=== PATIENT | female | born 1970 | race Two or more races ===

== ENCOUNTER 2016-04-22 09:24 | Emergency (ER) | payer MEDICAID ==
[~2016-04-22] VITALS: Ht 147.3 cm; Wt 70.8 kg
[2016-04-22 10:08] LABS: Basophils # (auto) 0 uL; Basophils % (auto) 0.3 % (0.0-2.0); Eosinophils # (auto) 0 uL; Eosinophils % (auto) 0.6 % (0.0-7.0); Hematocrit 40.6 % (36.0-46.0); Hemoglobin 12.9 g/dL (12.2-16.2); Lymphocytes % (auto) 28.1 % (10.0-50.0); Mean Corpuscular Hemoglobin 28.8 pg (28.0-32.0); Mean Corpuscular Hgb Conc. 31.9 g/dL (32.0-36.0); Mean Corpuscular Volume 90.5 fL (80.0-100.0); Mean Platelet Volume 9.1 fL (7.4-10.4); Monocytes # (auto) 0.4 uL; Neutrophils # (auto) 4.8 uL; Platelet Count (auto) 240 10^3/uL (140-450); Red Cell Distribution Width 12.1 % (11.6-16.0); White Blood Cell 7.2 10^3/uL (4.4-10.8)
[2016-04-22 10:33] LABS: Albumin 3.9 g/dL (3.4-5.0); BUN/Creatinine Ratio 22.6; Bilirubin, Total 0.4 mg/dL (0.2-1.0); Calcium 8.9 mg/dL (8.5-10.1); Magnesium 1.9 mg/dL (1.6-2.6); Total Protein 7.8 g/dL (6.4-8.2)
[2016-04-22 11:19] LABS: Urine Bilirubin Negative (Negative); Urine Color Yellow (Yellow); Urine Glucose Normal (Normal); Urine Ketone Negative (Negative); Urine Nitrite Negative (Negative); Urine RBC 11 /hpf (0 - 4); Urine Squamous Epithelial Cell FEW /hpf (<5); Urine Urobilinogen Normal (Negative)
[2016-04-22 11:26] LABS: Urine Blood 1+ /uL (Negative)
[2016-04-22] MEDS ORDERED: SODIUM CHLORIDE 0.9% 1,000 ML IVB ONE (11:58)
[2016-04-22 14:29] VITALS: BP 122/50
== END 2016-04-22 15:24 | disposition home or self-care (01) ==
LOC: ER 09:24
DX: K56.41 Fecal impaction (principal); K76.0 Fatty (change of) liver, not elsewhere classified; E11.9 Type 2 diabetes mellitus without complications; E78.5 Hyperlipidemia, unspecified
CPT/HCPCS: 36415; 71020; 74176; 80053; 81001; 81025; 82962; 83690; 83735; 85025; 99285; J7030

== ENCOUNTER 2016-05-09 22:35 | Emergency (ER) | payer MEDICAID ==
[~2016-05-09] VITALS: Ht 165.1 cm; Wt 72.6 kg
[2016-05-10] MEDS ORDERED: KETOROLAC TROMETH 60MG/2ML VIAL IM ONE (10:00)
[2016-05-10 10:53] LABS: Albumin 4.4 g/dL (3.4-5.0); Alkaline Phosphatase 125 U/L (45-117); Anion Gap 11 (5-15); Aspartate Aminotransferase 22 U/L (15-37); BUN/Creatinine Ratio 24.1; Bilirubin, Total 0.6 mg/dL (0.2-1.0); Blood Urea Nitrogen 14 mg/dL (7-18); Calcium 9.4 mg/dL (8.5-10.1); Carbon Dioxide 23 mmol/L (21-32); Chloride 105 mmol/L (98-107); GFR African American 145 mL/min; GFR Non-African American 119 mL/min; Glucose 138 mg/dL (74-106); Potassium 4.2 mmol/L (3.5-5.1); Sodium 139 mmol/L (136-145); Total Protein 8.9 g/dL (6.4-8.2)
[2016-05-10 11:00] VITALS: BP 139/99
[2016-05-10 11:42] LABS: Basophils # (auto) 0 uL; Basophils % (auto) 0.2 % (0.0-2.0); Eosinophils # (auto) 0 uL; Eosinophils % (auto) 0.5 % (0.0-7.0); Hematocrit 40.5 % (36.0-46.0); Hemoglobin 13.9 g/dL (12.2-16.2); Lymphocytes % (auto) 26.6 % (10.0-50.0); Mean Corpuscular Hemoglobin 30.6 pg (28.0-32.0); Mean Corpuscular Hgb Conc. 34.4 g/dL (32.0-36.0); Mean Platelet Volume 8.6 fL (7.4-10.4); Monocytes # (auto) 0.3 uL; Neutrophils # (auto) 5.2 uL; Neutrophils % (auto) 68.7 % (37.0-80.0); Platelet Count (auto) 258 10^3/uL (140-450); Red Cell Distribution Width 12.6 % (11.6-16.0); White Blood Cell 7.6 10^3/uL (4.4-10.8)
[2016-05-10 11:59] VITALS: BP 144/93
[2016-05-10 14:06] LABS: Urine Bilirubin Negative (Negative); Urine Color Yellow (Yellow); Urine Glucose Normal (Normal); Urine Ketone Negative (Negative); Urine Nitrite Negative (Negative); Urine RBC 3 /hpf (0 - 4); Urine Squamous Epithelial Cell FEW /hpf (<5); Urine Urobilinogen Normal (Negative); Urine pH 5.5 (5.0-8.0)
[2016-05-10 14:10] LABS: Urine Blood 2+ /uL (Negative)
== END 2016-05-10 13:44 | disposition home or self-care (01) ==
LOC: ER 22:35
DX: S22.31XA Fracture of one rib, right side, initial encounter for closed fracture (principal); S22.20XA Unspecified fracture of sternum, initial encounter for closed fracture; E11.9 Type 2 diabetes mellitus without complications; E78.5 Hyperlipidemia, unspecified; I10 Essential (primary) hypertension; Z79.4 Long term (current) use of insulin; W19.XXXA Unspecified fall, initial encounter; Y93.89 Activity, other specified; Y99.8 Other external cause status; Y92.89 Other specified places as the place of occurrence of the external cause
CPT/HCPCS: 36415; 71250; 80053; 81001; 84484; 85025; 93005; 96372; 99285; J1885

== ENCOUNTER 2016-05-11 04:05 | Emergency (ER) | payer MEDICAID ==
[~2016-05-11] VITALS: Ht 147.3 cm; Wt 72.6 kg
[2016-05-11 04:58] VITALS: BP 136/94
== END 2016-05-11 05:23 | disposition home or self-care (01) ==
LOC: ER 04:06
DX: S93.402A Sprain of unspecified ligament of left ankle, initial encounter (principal); I10 Essential (primary) hypertension; E11.9 Type 2 diabetes mellitus without complications; E78.5 Hyperlipidemia, unspecified; W19.XXXA Unspecified fall, initial encounter; Y93.89 Activity, other specified; Y99.8 Other external cause status; Y92.89 Other specified places as the place of occurrence of the external cause

== ENCOUNTER 2016-08-01 16:05 | Emergency (ER) | payer MEDICAID ==
[~2016-08-01] VITALS: Ht 147.3 cm; Wt 74.8 kg
[2016-08-01 16:28] VITALS: BP 147/111
== END 2016-08-01 19:45 | disposition home or self-care (01) ==
LOC: ER 16:31
DX: M25.561 Pain in right knee (principal); M25.571 Pain in right ankle and joints of right foot; E11.9 Type 2 diabetes mellitus without complications; I10 Essential (primary) hypertension; E78.5 Hyperlipidemia, unspecified; W01.0XXA Fall on same level from slipping, tripping and stumbling without subsequent striking against object, initial encounter; Y93.89 Activity, other specified; Y92.090 Kitchen in other non-institutional residence as the place of occurrence of the external cause; Y99.8 Other external cause status

== ENCOUNTER 2017-04-14 20:24 | Emergency (ER) | payer MEDICAID ==
[~2017-04-14] VITALS: Ht 152.4 cm; Wt 72.6 kg
[2017-04-14 20:51] VITALS: BP 113/87
== END 2017-04-14 21:53 | disposition home or self-care (01) ==
LOC: ER 20:28
DX: F31.9 Bipolar disorder, unspecified (principal); I10 Essential (primary) hypertension; E11.9 Type 2 diabetes mellitus without complications; F41.9 Anxiety disorder, unspecified; E78.5 Hyperlipidemia, unspecified; Z76.0 Encounter for issue of repeat prescription

== ENCOUNTER 2018-08-11 12:43 | Emergency (ER) | payer MEDICAID ==
[~2018-08-11] VITALS: Ht 162.6 cm; Wt 90.7 kg
[2018-08-11 13:51] LABS: Albumin 3.9 g/dL (3.4-5.0); Anion Gap 9 (5-15); Blood Urea Nitrogen 7 mg/dL (7-18); Calcium 9.1 mg/dL (8.5-10.1); Carbon Dioxide 24 mmol/L (21-32); Chloride 107 mmol/L (98-107); Glucose 105 mg/dL (74-106); Potassium 3.8 mmol/L (3.5-5.1); Sodium 140 mmol/L (136-145)
[2018-08-11 13:57] LABS: Alanine Aminotransferase 27 U/L (13-56); Alkaline Phosphatase 82 U/L (45-117); Aspartate Aminotransferase 15 U/L (15-37); BUN/Creatinine Ratio 11.3; Bilirubin, Total 0.4 mg/dL (0.2-1.0); GFR African American 133 mL/min; GFR Non-African American 110 mL/min; Total Protein 7.7 g/dL (6.4-8.2)
[2018-08-11 14:23] VITALS: BP 133/87
[2018-08-11 14:29] LABS: Basophils # (auto) 0.3 uL; Basophils % (auto) 2.9 % (0.0-2.0); Eosinophils # (auto) 0.3 uL; Hematocrit 41.7 % (36.0-46.0); Hemoglobin 14.1 g/dL (12.2-16.2); Lymphocytes # (auto) 1.7 uL; Mean Corpuscular Hemoglobin 30.9 pg (28.0-32.0); Mean Corpuscular Volume 91.2 fL (80.0-100.0); Monocytes # (auto) 0.3 uL; Monocytes % (auto) 2.6 % (0.0-12.0); Neutrophils # (auto) 7.8 uL; Neutrophils % (auto) 75.5 % (37.0-80.0); Platelet Count (auto) 225 10^3/uL (140-450); Red Blood Cells 4.57 10^6/uL (4.0-5.20); Red Cell Distribution Width 13.3 % (11.8-14.3); White Blood Cell 10.3 10^3/uL (4.4-10.8)
[2018-08-11] MEDS ORDERED: KETOROLAC TROMETH 60MG/2ML VIAL IM ONE (15:15)
== END 2018-08-11 15:31 | disposition home or self-care (01) ==
LOC: EDBD 12:43 → ER 12:45
DX: N39.0 Urinary tract infection, site not specified (principal); N28.1 Cyst of kidney, acquired; E11.9 Type 2 diabetes mellitus without complications; E78.5 Hyperlipidemia, unspecified; I10 Essential (primary) hypertension; Z87.442 Personal history of urinary calculi
CPT/HCPCS: 36415; 74176; 80053; 81002; 84484; 85025; 96372; 99284; J1885

== ENCOUNTER 2021-02-14 16:20 | Emergency (ER) | payer MEDICAID ==
[~2021-02-14] VITALS: Ht 147.3 cm; Wt 63.5 kg
[2021-02-14 16:28] VITALS: BP 117/75
[2021-02-14 17:05] LABS: Urine Bacteria FEW /hpf (None Seen); Urine Blood Negative /uL (Negative); Urine Specific Gravity 1.002 (1.001-1.035); Urine WBC 1 /hpf (0 - 5)
[2021-02-14] MEDS ORDERED: HYDROcodone-ACET 5/325MG TAB PO ONE (17:15)
[2021-02-14 19:22] LABS: Albumin 3.9 g/dL (3.4-5.0); BUN/Creatinine Ratio 12.7; Basophils # (auto) 0 10 ^3/uL (0-0.2); Basophils % (auto) 0.3 % (0.0-2.0); Calcium 8.8 mg/dL (8.5-10.1); Eosinophils # (auto) 0.1 10 ^3/uL (0-0.8); Eosinophils % (auto) 0.8 % (0.0-7.0); Hematocrit 41.7 % (36.0-46.0); Hemoglobin 14.1 g/dL (12.2-16.2); Lymphocytes # (auto) 2.5 10 ^3/uL (0.4-5.4); Lymphocytes % (auto) 38.1 % (10.0-50.0); Mean Corpuscular Hemoglobin 31.2 pg (28.0-32.0); Mean Corpuscular Hgb Conc. 33.7 g/dL (32.0-36.0); Mean Corpuscular Volume 92.4 fL (80.0-100.0); Monocytes # (auto) 0.3 10 ^3/uL (0-1.3); Monocytes % (auto) 4.1 % (0.0-12.0); Neutrophils # (auto) 3.8 10 ^3/uL (1.6-8.6); Neutrophils % (auto) 56.7 % (37.0-80.0); Potassium 3.9 mmol/L (3.5-5.1); Red Blood Cells 4.51 10^6/uL (4.0-5.20); Red Cell Distribution Width 12.3 % (11.8-14.3); White Blood Cell 6.6 10^3/uL (4.4-10.8)
[2021-02-14 19:25] LABS: Bilirubin, Total 0.2 mg/dL (0.2-1.0); Total Protein 7.1 g/dL (6.4-8.2)
== END 2021-02-14 20:31 | disposition home or self-care (01) ==
LOC: ER 16:20
DX: M79.662 Pain in left lower leg (principal); Z76.5 Malingerer [conscious simulation]; I10 Essential (primary) hypertension; E11.9 Type 2 diabetes mellitus without complications; E78.5 Hyperlipidemia, unspecified; F17.210 Nicotine dependence, cigarettes, uncomplicated
CPT/HCPCS: 36415; 80053; 81001; 85025; 93971

== ENCOUNTER 2021-07-23 20:47 | Emergency (ER) | payer MEDICAID ==
[~2021-07-23] VITALS: Ht 149.9 cm; Wt 56.2 kg
[2021-07-24] MEDS ORDERED: NAP500T PO (02:38)
[2021-07-24 03:15] VITALS: BP 130/78
== END 2021-07-24 03:27 | disposition home or self-care (01) ==
LOC: ER 20:47
DX: M79.672 Pain in left foot (principal); F17.210 Nicotine dependence, cigarettes, uncomplicated; E11.9 Type 2 diabetes mellitus without complications; I10 Essential (primary) hypertension; E78.5 Hyperlipidemia, unspecified
CPT/HCPCS: 73630

== ENCOUNTER 2021-10-10 16:08 | Emergency (ER) | payer MEDICAID ==
[~2021-10-10 16:08] MED LIST: NAP500T PO
== END 2021-10-10 16:48 | disposition left against medical advice (07) ==
LOC: ER 16:08
DX: R10.9 Unspecified abdominal pain (principal); R11.2 Nausea with vomiting, unspecified; Z53.21 Procedure and treatment not carried out due to patient leaving prior to being seen by health care provider

== ENCOUNTER 2021-10-12 20:13 | Emergency (ER) | payer MEDICAID ==
[~2021-10-12] VITALS: Ht 147.3 cm; Wt 64.0 kg
[2021-10-12 22:25] VITALS: BP 131/98
== END 2021-10-12 22:28 | disposition home or self-care (01) ==
LOC: ER 20:13
DX: B34.9 Viral infection, unspecified (principal); I10 Essential (primary) hypertension; E11.9 Type 2 diabetes mellitus without complications; E78.5 Hyperlipidemia, unspecified; F17.210 Nicotine dependence, cigarettes, uncomplicated; Z90.49 Acquired absence of other specified parts of digestive tract; Z79.899 Other long term (current) drug therapy; Z88.8 Allergy status to other drugs, medicaments and biological substances; Z20.822 Contact with and (suspected) exposure to COVID-19
CPT/HCPCS: 36415

== ENCOUNTER 2023-03-10 01:41 | Emergency (ER) | payer MEDICAID ==
[~2023-03-10] VITALS: Ht 147.3 cm; Wt 58.7 kg
[2023-03-10 05:31] LABS: COVID19 ANTIGEN SOFIA FIA NEGATIVE (NEGATIVE)
[2023-03-10 05:32] LABS: Rapid Influenza A Negative (Negative); Rapid Influenza B Negative (Negative)
[2023-03-10 05:55] VITALS: BP 132/89; PULSE 89; RESP 19; TEMP 98; O2SAT 98
== END 2023-03-10 06:40 | disposition home or self-care (01) ==
LOC: ER 01:41
DX: B34.9 Viral infection, unspecified (principal); I10 Essential (primary) hypertension; E11.9 Type 2 diabetes mellitus without complications; E78.5 Hyperlipidemia, unspecified; F17.210 Nicotine dependence, cigarettes, uncomplicated; Z90.49 Acquired absence of other specified parts of digestive tract; Z20.822 Contact with and (suspected) exposure to COVID-19
CPT/HCPCS: 36415; 87426; 87804

== ENCOUNTER 2024-03-24 18:00 | Emergency (ER) | payer MEDICAID ==
[~2024-03-24] VITALS: Ht 142.2 cm; Wt 54.5 kg
[2024-03-24 18:53] VITALS: BP 147/104; PULSE 120; RESP 18; TEMP 99.5; O2SAT 97
[2024-03-24] MEDS: clonazePAM 0.5 MG TAB PO ONE (19:06)
--- NOTE | 2024-03-24 19:06 | ED.PDOC ---
Back pain HPI HPI Comments This is a 53-year-old female presents to the ED chief complaint left lower leg pain. Currently in a boarding home, states she rents a room out her caregivers name his Antonia. Patient states was climbing up the window to let someone in the house fell out the 1st floor window landing on her left leg. Patient notes left lower leg pain 10/10 on pain scale described as sharp shooting type pain. Has not tried any [id number] relief measures. Patient presented his historical crying. Denies neck pain, head injury, LOC, back pain, numbness or weakness. Chief Complaint: Lower Extremity Time Seen by MD: 18:03 Primary Care Provider: ZACK Reviewed Notes: Nurses Notes, Medications, Allergies Allergies: Coded Allergies: Haloperidol (Verified Allergy, Unknown, 10/12/21) Home Meds Active Scripts Naproxen (NAPROSYN TABLET) 500 Mg Tb, 1 TAB PO BID PRN, #30 TAB 1 Refill Prov:HOWARD HILLIARD DO 07/24/21 Information Source: Patient Past Medical History PAST MEDICAL HISTORY: Anxiety, Depression, DM, High Lipids, HTN, Kidney Stones Surgical History: BTL, Cholecystectomy, Tubal Ligation GREEK PROFESSOR History: No Pertinent GREEK PROFESSOR History Family History Family History: Reviewed,noncontributory to illness Social History Smoker: Cigarettes Alcohol: Occasionally Drugs: Marijuana, Methamphetamine Lives In: Home Constitutional: denies: chills, diaphoresis, fatigue, fever, malaise, sweats, weakness, others EENTM: denies: blurred vision, double vision, ear bleeding, ear discharge, ear drainage, ear pain, ear ringing, eye pain, eye redness, hearing loss, mouth pain, mouth swelling, nasal discharge, nose bleeding, nose congestion, nose pain, photophobia, tearing, throat pain, throat swelling, voice changes, others Respiratory: denies: cough, hemoptysis, orthopnea, SOB at rest, shortness of breath, SOB with excertion, stridor, wheezing, others Cardiovascular: denies: chest pain, dizzy spells, diaphoresis, Dyspnea on exertion, edema, irregular heart beat, left arm pain, lightheadedness, palpitations, PND, syncope, others Gastrointestinal: denies: abdomen distended, abdominal pain, blood streaked bowels, constipated, diarrhea, dysphagia, difficulty swallowing, hematemesis, melena, nausea, poor appetite, poor fluid intake, rectal bleeding, rectal pain, vomiting, others Genitourinary: denies: abnormal vagina bleeding, burning, dyspareunia, dysuria, flank pain, frequency, hematuria, incontinence, pain, , vagina discharge, urgency, others Neurological: denies: dizziness, fainting, headache, left sided numbness, left sided weakness, numbness, paresthesia, pre-existing deficit, right sided n umbness, right sided weakness, seizure, speech problems, tingling, tremors, weakness, others Musculoskeletal: reports: others (Leg pain); denies: back pain, gout, joint pain, joint swelling, muscle pain, muscle stiffness, neck pain Integumetry: denies: bruises, change in color, change in hair/nails, dryness, laceration, lesions, lumps, rash, wounds, others Allergic/Immunocompromised: denies: Difficulty Healing, Frequent Infections, Hives, Itching, others Hematologic/Lymphatic: denies: anemia, blood clots, easy bleeding, easy bruising, swollen glands, others Endocrine: denies: excessive hunger, excessive sweating, excessive thirst, excessive urination, flushing, intolerance to cold, intolerance to heat, unexplained weight gain, unexplained weight loss, others Psychiatric: denies: anxiety, bipolar disorder, depression, hopeless, panic disorder, schizophrenia, sleepless, suicidal, others Physical Exam General Appearance: No Apparent Distress, Normal HEENT: Normal ENT Inspection, Pharynx Normal, TMs Normal Neck: Full Range of Motion, Non-Tender, Normal, Normal Inspection Respiratory: Chest Non-Tender, Lungs Clear, No Accessory Muscle Use, No Respiratory Distress, Normal Breath Sounds Cardiovascular: No Edema, No JVD, No Murmur, No Gallop, Normal Peripheral Pulses, Regular Rate/Rhythm Breast Exam: Deferred Gastrointestinal: No Organomegaly, Non Tender, No Pulsatile Mass, Normal Bowel Sounds, Soft Genitalia: Deferred Pelvic: Deferred Rectal: Deferred Extremities: No calf tenderness, Normal capillary refill, Normal inspection, Normal range of motion, Non-tender, No pedal edema Musculoskeletal : Location: Left Extremity Location: Leg (Left mid peterson with moderate tenderness we will do with trace edema and ecchymosis no open lesions abrasions or lacerations strength sensory motion intact positive pedal pulse) Apperance: Normal Neurologic: Alert, sales marketing II-XII nml as Tested, No Motor Deficits, Normal Affect, Normal Mood, No Sensory Deficits Cerebellar Function: Normal Reflexes: Normal Skin: Dry, Normal Color, Warm Lymphatic: No Adenopathy Was a procedure done? Was a procedure done?: No Back Pain Differential Dx Differential Diagnosis: Fracture, Musculoskeletal Pain X-Ray, Labs, Meds, VS Vital Signs Date Time Temp Pulse Resp B/P (MAP) Pulse Ox O2 Delivery O2 Flow Rate FiO2 03/24/24 18:53 99.5 120 18 147/104 (118) 97 99.5 03/24/24 18:53 120 18 97 Room Air 03/24/24 18:35 99.5 120 18 147/104 (118) 97 Current Medications Medications (Trade) Dose Ordered Sig/Alisa Route Start Time Stop Time Status Last Admin Clonazepam (KlonoPIN TABLET) 0.5 mg ONCE ONCE PO 03/24/24 19:00 03/24/24 19:01 DC 03/24/24 19:06 X-Ray, Labs, Meds, VS Comment Patient given Klonopin noted improvement patient not surgically crying. X-ray left tib-fib shows no acute findings without osseous lesions. Likely contusion. Motrin 600 script to patient's pharmacy on file. Advised on rice. Advised to follow up with her PCP in 2-3 days as necessary consider further imaging if symptoms persist. ER return precautions given patient indicated understanding agrees with discharge plan of care. Time of 1ST Reevaluation: 19:22 Reevaluation 1ST: Improved Patient Education/Counseling: Diagnosis, Treatment, Prognosis, Need For Follow Up Family Education/Counseling: No Family Present Departure 1 Departure Time of Disposition: 19:22 Impression: Primary Impression: Contusion of lower leg, left Qualified Codes: S80.12XA - Contusion of left lower leg, initial encounter Disposition: HOME / SELF CARE / HOMELESS Condition: Stable e-Prescriptions Ibuprofen Micronized (MOTRIN TABLET) 600 Mg Tb 600 MG PO TID PRN for 5 Days, #15 TAB *Black box warning-NSAIDS can increase risk of DC & hypertension, GI irritation, ulceration, bleed, perferation. Do not use post cardiac surgery. Use short duration/lowest effective dose. Prov: MADI MORRISON 03/24/24 Discharged With: Self Critical Care Note Critical Care Time?: No Stability Stability form required: No TAMIKO,MADI NATIONAL FACILITIES MANAGER Mar 24, 2024 19:06
--- NOTE | 2024-03-24 19:21 | DVH ---
EXAM: XY L TIB FIB XRAY CLINICAL HISTORY: pain/injury COMPARISON: None TECHNIQUE: XY L TIB FIB XRAY Findings/Impression: 2 views of the left tibia and fibula. There is no evidence of an acute fracture, dislocation, blastic, or lytic lesions. No radiopaque foreign bodies. No superficial soft tissue abnormalities.
[2024-03-24] MEDS ORDERED: IBU600T PO (19:23)
== END 2024-03-24 20:05 | disposition home or self-care (01) ==
LOC: ER 18:00
DX: S80.12XA Contusion of left lower leg, initial encounter (principal); I10 Essential (primary) hypertension; E11.9 Type 2 diabetes mellitus without complications; F41.9 Anxiety disorder, unspecified; F32.9 Major depressive disorder, single episode, unspecified; E78.5 Hyperlipidemia, unspecified; F17.210 Nicotine dependence, cigarettes, uncomplicated; F15.90 Other stimulant use, unspecified, uncomplicated; Z90.49 Acquired absence of other specified parts of digestive tract; Z98.890 Other specified postprocedural states; Z79.899 Other long term (current) drug therapy; W17.89XA Other fall from one level to another, initial encounter; Y93.39 Activity, other involving climbing, rappelling and jumping off; Y92.048 Other place in boarding-house as the place of occurrence of the external cause; Y99.8 Other external cause status
CPT/HCPCS: 73590

== ENCOUNTER → 2024-06-26 | Outpatient (CLI) | payer MEDICAID ==
[2024-06-26 12:16] LABS: Basophils # (auto) 0 10 ^3/uL (0-0.2); Basophils % (auto) 0.5 % (0.0-2.0); Eosinophils # (auto) 0 10 ^3/uL (0-0.8); Eosinophils % (auto) 0.6 % (0.0-7.0); Hematocrit 41.6 % (36.0-46.0); Hemoglobin 14.3 g/dL (12.2-16.2); Lymphocytes # (auto) 2.6 10 ^3/uL (0.4-5.4); Lymphocytes % (auto) 48.6 % (10.0-50.0); Mean Corpuscular Hemoglobin 30.7 pg (28.0-32.0); Mean Corpuscular Hgb Conc. 34.4 g/dL (32.0-36.0); Mean Corpuscular Volume 89.4 fL (80.0-100.0); Monocytes # (auto) 0.3 10 ^3/uL (0-1.3); Monocytes % (auto) 5.2 % (0.0-12.0); Neutrophils # (auto) 2.4 10 ^3/uL (1.6-8.6); Neutrophils % (auto) 45.1 % (37.0-80.0); Platelet Count (auto) 187 10^3/uL (140-450); Red Blood Cells 4.66 10^6/uL (4.0-5.20); White Blood Cell 5.4 10^3/uL (4.4-10.8)
[2024-06-26 12:34] LABS: Alanine Aminotransferase 16 U/L (7-40); Anion Gap 7 (5-15); Aspartate Aminotransferase 17 U/L (13-40); BUN/Creatinine Ratio 21.4 (10.0-20.0); Blood Urea Nitrogen 18 mg/dL (9-23); Calcium 10.3 mg/dL (8.7-10.4); Carbon Dioxide 27 mmol/L (20-31); Chloride 105 mmol/L (98-107); Potassium 4.6 mmol/L (3.5-5.1); Sodium 139 mmol/L (136-145); Total Protein 7.7 g/dL (5.7-8.2); Triglycerides 119 mg/dL (< 150)
[2024-06-26 12:35] LABS: Bilirubin, Total 0.6 mg/dL (0.2-1.0); Cholesterol 170 mg/dL (< 200); HDL Cholesterol 50 mg/dL (40-59)
[2024-06-26 12:39] LABS: Alkaline Phosphatase 124 U/L (46-116); Glucose 142 mg/dL (74-106); LDL Cholesterol 102 mg/dL (< 100)
[2024-06-26 12:57] LABS: Creatinine, Urine 147.67 mg/dL (30.0-125.0)
[2024-06-26 13:00] LABS: Microalb/Creat Ratio, Urine < 3.0
== END | disposition home or self-care (01) ==
LOC: LAB 11:34
PROVIDERS: ATTEND Nurse Practitioner Family
DX: E11.9 Type 2 diabetes mellitus without complications (principal); E66.9 Obesity, unspecified; Z00.01 Encounter for general adult medical examination with abnormal findings
CPT/HCPCS: 36415; 80053; 80061; 82043; 82306; 82570; 83036; 84443; 85025

== ENCOUNTER 2024-08-07 01:39 | Inpatient (IN) | payer MEDICAID ==
[~2024-08-07] VITALS: Ht 142.2 cm; Wt 61.3 kg
[2024-08-07] VITALS (7 sets, daily range): BP systolic 111–160; BP diastolic 88–92; PULSE 85–102; RESP 16–18; TEMP 96.8–98.7; O2SAT 96–100
--- NOTE | 2024-08-07 02:21 | ED.PDOC ---
History of Present Illness HPI Comments 54 y/o F, with a history of DM, HLD, HTN, cholecystectomy, BTL, and polysubstance abuse, is BIBA for 3 hours of nonradiating, RLQ abdominal pain. Patient reports pain being a 7/10 in severity and admits to heavy alcohol use, earlier, last night. Denies any further relevant history, such as recent travel, abdominal surgeries, injuries, sick contact, or spoiled food or additional illicit substance use. Patient has no reported nausea, vomiting, diarrhea, constipation, urinary symptoms, fever, chills, or further associated symptoms. On scene, she was found with a blood glucose of 249. Chief Complaint: Abdominal Pain Time Seen by MD: 02:00 Primary Care Provider: ZACK Reviewed Notes: Nurses Notes, Skein Yard Drier Notes, Medications, Allergies Allergies: Coded Allergies: Haloperidol (Verified Allergy, Unknown, 10/12/21) Home Meds Active Scripts Naproxen (NAPROSYN TABLET) 500 Mg Tb, 1 TAB PO BID PRN, #30 TAB 1 Refill Prov:HOWARD HILLIARD 07/24/21 Information Source: Emergency Med Personnel Mode of Arrival: EMS Severity: Moderate Timing: Hours Duration: Since onset Prehospital treatment: 12 Lead EKG, Accucheck, Chief Mate Past Medical History PAST MEDICAL HISTORY: Anxiety, Depression, DM, High Lipids, HTN, Kidney Stones, Schizophrenia Past Medical History (Other): Bipolar disorder Surgical History: BTL, Cholecystectomy EXPLOSIVE ORDNANCE MANAGER History: No Pertinent EXPLOSIVE ORDNANCE MANAGER History Family History Family History: Reviewed,noncontributory to illness Social History Smoker: Cigarettes Alcohol: Occasionally Drugs: Marijuana, Methamphetamine Lives In: Home All Other Systems: Reviewed and Negative (Comprehensive systems review obtained and negative except for what is stated in the HPI.) Physical Exam General Appearance: No Apparent Distress, Normal HEENT: Normal ENT Inspection, Pharynx Normal, TMs Normal Neck: Full Range of Motion, Non-Tender, Normal, Normal Inspection Respiratory: Chest Non-Tender, Lungs Clear, No Accessory Muscle Use, No Respiratory Distress, Normal Breath Sounds Cardiovascular: No Edema, No JVD, No Murmur, No Gallop, Normal Peripheral Pulses, Regular Rate/Rhythm Breast Exam: Deferred Gastrointestinal: No Organomegaly, No Pulsatile Mass, Normal Bowel Sounds, RLQ (tenderness ), Soft, Tenderness (RLQ) Genitalia: Deferred Pelvic: Deferred Rectal: Deferred Extremities: No calf tenderness, Normal capillary refill, Normal inspection, Normal range of motion, Non-tender, No pedal edema Musculoskeletal : Apperance: Normal Neurologic: Alert, dental office receptionist II-XII nml as Tested, No Motor Deficits, Normal Affect, Normal Mood, No Sensory Deficits Cerebellar Function: Normal Reflexes: Normal Skin: Dry, Normal Color, Warm Lymphatic: No Adenopathy Was a procedure done? Was a procedure done?: No Differential Dx Considerations may include: appendicitis, diverticulitis, PID, UTI, kidney stones, among others X-Ray, Labs, Meds, VS Vital Signs Date Time Temp Pulse Resp B/P (MAP) Pulse Ox O2 Delivery O2 Flow Rate FiO2 08/07/24 01:39 98.4 118 18 142/82 (102) 97 98.4 Lab Test 08/07/24 02:20 Range/Units White Blood Count 5.8 4.4-10.8 10^3/uL Red Blood Count 4.77 4.0-5.20 10^6/uL Hemoglobin 14.3 12.2-16.2 g/dL Hematocrit 42.3 36.0-46.0 % Mean Corpuscular Volume 88.6 80.0-100.0 fL Mean Corpuscular Hemoglobin 30.0 28.0-32.0 pg Mean Corpuscular Hemoglobin Concent 33.9 32.0-36.0 g/dL Red Cell Distribution Width 12.6 11.8-14.3 % Platelet Count 179 140-450 10^3/uL Mean Platelet Volume 8.7 6.9-10.8 fL Neutrophils (%) (Auto) 52.0 37.0-80.0 % Lymphocytes (%) (Auto) 43.4 10.0-50.0 % Monocytes (%) (Auto) 3.8 0.0-12.0 % Eosinophils (%) (Auto) 0.4 0.0-7.0 % Basophils (%) (Auto) 0.4 0.0-2.0 % Neutrophils # (Auto) 3.0 1.6-8.6 10 ^3/uL Lymphocytes # (Auto) 2.5 0.4-5.4 10 ^3/uL Monocytes # (Auto) 0.2 0-1.3 10 ^3/uL Eosinophils # (Auto) 0 0-0.8 10 ^3/uL Basophils # (Auto) 0 0-0.2 10 ^3/uL Nucleated Red Blood Cells 0.1 % Sodium Level 142 136-145 mmol/L Potassium Level 3.2 L 3.5-5.1 mmol/L Chloride Level 109 H 98-107 mmol/L Carbon Dioxide Level 17 L 20-31 mmol/L Anion Gap 16 H 5-15 Blood Urea Nitrogen 13 9-23 mg/dL Creatinine 0.71 0.550-1.02 mg/dL Glomerular Filtration Rate Calc 102 >90 mL/min BUN/Creatinine Ratio 18.3 10.0-20.0 Serum Glucose 243 H 74-106 mg/dL Calcium Level 9.5 8.7-10.4 mg/dL Plasma/Serum Blood Alcohol 65.8 H <10 mg/dL Current Medications Medications (Trade) Dose Ordered Sig/Alisa Route Start Time Stop Time Status Last Admin Sodium Chloride 1,000 ml @ 1,000 mls/hr Q1H ONCE IV 08/07/24 02:15 08/07/24 03:14 DC 08/07/24 03:34 Ondansetron HCl (Zofran) 4 mg ONCE ONCE IV 08/07/24 02:15 08/07/24 02:16 DC 08/07/24 03:33 Famotidine (Pepcid Injection) 20 mg ONCE ONCE IV 08/07/24 02:15 08/07/24 02:16 DC 08/07/24 03:34 Time of 1ST Reevaluation: 02:30 Reevaluation 1ST: Unchanged Patient Education/Counseling: Diagnosis, Treatment Family Education/Counseling: No Family Present Additional Information Previous visits reviewed: March 24, 2024 encounter for contusion of lower leg, left The following tests were ordered, and results were reviewed by me: CT abdomen/pelvis w/IV contrast; UA, CBC, BMP, blood alcohol Additional Information was gathered from interviewing the following independent historians: EMS I reviewed and agreed with the following test results read by other providers: CT abdomen/pelvis w/IV contrast I discussed treatment and results with medical personnel and: patient Departure 1 Departure Time of Disposition: 04:10 (Patient presented with abdominal pain that was concerning for possible appendicits, gastritis, cholecystitis, colitis, gastroenteritis, sbo, or orther possible surgical emergency. Data: 1. I ordered and reviewed the result of at least 3 labs including a CBC, BMP, and Urinalysis. 2. I independently interpreted the following tests: CT Abdoment and Pelvis is concerning for gastroenteritis .Risk:This patient has a high risk of morbidity due to further diagnostic testing or treatment and may suffer from an acute abdominal process disorder. Workup reveals gastroenteritis but patient is having intractable bowel movement and patient should be admitted for further workup. and possible expert consultation. ) Impression: Primary Impression: Intractable abdominal pain Additional Impressions: Gastroenteritis Alcohol intoxication Qualified Codes: F10.920 - Alcohol use, unspecified with intoxication, uncomplicated Disposition: ADMITTED INPATIENT Admit to: Med Surg Condition: Serious Critical Care Note Critical Care Time?: Yes Critical care comment: Intractable abdominal pain Authorized and Performed by: Mitchell Bergeron MD Total critical care time: Approximately 39 minutes Due to a high probability of clinically significant, life threatening deterioration, the patient required my highest level of preparedness to intervene emergently and I personally spent this critical care time directly and personally managing the patient. This critical care time included obtaining a history; examining the patient; pulse oximetry; ordering and review of studies; arranging urgent treatment with development of a management plan; evaluation of patient's response to treatment; frequent reassessment; and, discussions with other providers. This critical care time was performed to assess and manage the high probability of imminent, life-threatening deterioration that could result in multi-organ failure. It was exclusive of separately billable procedures and treating other patients and teaching time. Please see my other sections and the rest of the note for further information on patient assessment and treatment. Stability Stability form required: No Heart Score Heart Score: Heart Score Response (Comments) Value History N/A 0 EKG N/A 0 Age N/A 0 Risk Factors N/A 0 Troponin N/A 0 Total 0 I personally scribed for MITCHELL BERGERON MD ([email or web address]) on 08/07/24 at 02:21. Electronically submitted by Heri Nixon ([email or web address]). MITCHELL BERGERON MD Aug 07, 2024 02:21
[2024-08-07 02:27] LABS: Basophils # (auto) 0 10 ^3/uL (0-0.2); Basophils % (auto) 0.4 % (0.0-2.0); Eosinophils # (auto) 0 10 ^3/uL (0-0.8); Eosinophils % (auto) 0.4 % (0.0-7.0); Hematocrit 42.3 % (36.0-46.0); Hemoglobin 14.3 g/dL (12.2-16.2); Lymphocytes # (auto) 2.5 10 ^3/uL (0.4-5.4); Lymphocytes % (auto) 43.4 % (10.0-50.0); Mean Corpuscular Hgb Conc. 33.9 g/dL (32.0-36.0); Mean Corpuscular Volume 88.6 fL (80.0-100.0); Monocytes # (auto) 0.2 10 ^3/uL (0-1.3); Monocytes % (auto) 3.8 % (0.0-12.0); Nucleated Red Blood Cells % 0.1 %; Platelet Count (auto) 179 10^3/uL (140-450); Red Blood Cells 4.77 10^6/uL (4.0-5.20); Red Cell Distribution Width 12.6 % (11.8-14.3); White Blood Cell 5.8 10^3/uL (4.4-10.8)
[2024-08-07 02:37] LABS: Sodium 142 mmol/L (136-145)
[2024-08-07 02:38] LABS: Anion Gap 16 (5-15); Calcium 9.5 mg/dL (8.7-10.4)
[2024-08-07 02:43] LABS: BUN/Creatinine Ratio 18.3 (10.0-20.0); Blood Urea Nitrogen 13 mg/dL (9-23)
[2024-08-07 02:44] LABS: Carbon Dioxide 17 mmol/L (20-31); Chloride 109 mmol/L (98-107); Glucose 243 mg/dL (74-106); Potassium 3.2 mmol/L (3.5-5.1)
[2024-08-07 03:06] LABS: Blood Alcohol 65.8 mg/dL (<10)
[2024-08-07] MEDS: ONDANSETRON HCL 4 MG/2 ML VIAL IV ONE (03:33)
[2024-08-07] MEDS: IOHEXOL 300 MG/ML 100ML BOTTLE IJ ONE (03:33)
[2024-08-07] MEDS: SODIUM CHLORIDE 0.9% 1,000 ML IV ONE (03:34)
[2024-08-07] MEDS: FAMOTIDINE (10MG/ML) 2ML VL IV ONE (03:34)
--- NOTE | 2024-08-07 04:08 | DVH ---
Exam: CT CT AB PEL WITH IV CON ONLY History: rlq pain Comparison Study: Report from a prior CT of the abdomen pelvis performed on 12/15/2023 Contrast: Type of contrast: Omnipaque 300 Contrast injected: 100 cc Contrast wasted: 0 TECHNIQUE: CT of the abdomen pelvis was performed with intravenous contrast from the lung bases to th e proximal femurs. Coronal and sagittal reformatted images are submitted. Radiation Dose Information: CT Dose: CTDI volume is 10.91 mGy. Dose-length product is 561.04 mGy*cm FINDINGS: Lung Bases: No acute or significant lung base finding. Normal heart size. No pleural or pericardial effusion. Liver: The liver is normal in size. No focal lesions. Normal hepatic vascular enhancement. Gallbladder and Biliary Tree: The gallbladder is surgically absent. No intrahepatic biliary ductal di latation. The common bile duct is dilated measuring 1.1 cm in diameter. Spleen: Unremarkable Pancreas: The pancreas is normal in appearance without focal lesions or abnormal enhancement. Adrenal Glands: Unremarkable. Kidneys: Kidneys demonstrate normal symmetric enhancement. There is an 8 mm parenchymal calcificatio n versus intrarenal calculus. No hydronephrosis. Bilateral subcentimeter simple renal cysts. Bladder: Unremarkable Bowel: The stomach is fluid distended. No small bowel dilatation or obstruction. There is mild diffu se small bowel wall thickening. Scattered stool throughout the colon. Normal appendix. Intraperitoneal cavity: No pneumoperitoneum. No ascites. Lymphadenopathy: No mesenteric, retroperitoneal or periportal lymphadenopathy. Abdominal Wall and Mesentery: Unremarkable. Vasculature: The visualized abdominal aorta is normal in size and caliber. Abdominal and pelvic vess els demonstrate normal enhancement. Pelvic Organs: The uterus is unremarkable. There is a right adnexal cystic lesion measuring 7.9 x 5.7 cm. Musculoskeletal: No aggressive focal bony lesions, acute fractures or dislocation. Soft tissues: Unremarkable. IMPRESSION: 1. Fluid distention of the stomach and small bowel wall thickening which may reflect gastroenteritis. No bowel obstruction. 2. Normal appendix. 3. 7.9 cm right adnexal cystic lesion. Based on prior CT reports from 12/15/2023 and 09/09/2022, a ri ght adnexal cystic lesion was also present. If not already performed, further workup with pelvic ultr asound or contrast-enhanced pelvic MRI recommended. 4. Cholecystectomy. 5. Left renal calcification versus nonobstructing stone. All CT scans at this medical facility are performed using dose modulation techniques as appropriate t o a performed exam including the following: Automated exposure control was utilized; adjustment of th e MA and/or KV according to patient size; and use of iterative reconstruction technique.
[2024-08-07 04:30] LABS: Urine Bacteria None Seen /hpf (None Seen)
[2024-08-07 04:46] LABS: Urine Blood Negative /uL (Negative); Urine Clarity Clear (Clear); Urine Color Colorless (Yellow); Urine Protein, UAD Negative (Negative); Urine Specific Gravity 1.023 (1.001-1.035); Urine Squamous Epithelial Cell FEW /hpf (<5); Urine Urobilinogen Normal (Negative); Urine WBC 1 /HPF (0-5); Urine pH 6.5 (5.0-9.0)
[2024-08-07] MEDS: metroNIDAZOLE 500MG/100ML 100 ML IV ONE (06:00)
[2024-08-07] MEDS ORDERED: DEXTROSE (50%) 50ML SYRG IV PRN (06:00)
[2024-08-07] MEDS ORDERED: ONDANSETRON HCL 4 MG/2 ML VIAL IV PRN (06:15)
--- NOTE | 2024-08-07 06:16 | DVHHPRES ---
History of Present Illness Resident Creating Document: ANNEMARIE PATRICK RESIDENT History of Present Illness 54-year-old female with past medical history of diabetes mellitus type 2, hyperlipidemia, hypertension, substance use, schizophrenia and bipolar disorder presented with complaints of right lower quadrant pain. Patient has been drinking alcohol for long time and last drink was yesterday. Patient also mentioned having nausea and vomiting. Patient is a poor historian. Patient denied any active chest pain, shortness of breath, diarrhea, constipation. She also denies any cough, headache, dizziness. Past medical history diabetes mellitus type 2, hyperlipidemia, hypertension, substance use, schizophrenia and bipolar disorder Past surgical history Cholecystectomy Medication history patient is a poor historian Social history Active smoker Heavy alcohol use Denied any other drugs, used to take drugs in the past, Family history Patient is adopted, does not know Allergic history Haloperidol Review of Systems Review of Systems As described in the HPI Allergies: Coded Allergies: Haloperidol (Verified Allergy, Unknown, 10/12/21) Exam Vital Signs Vital Signs Date Time Temp Pulse Resp B/P (MAP) Pulse Ox O2 Delivery O2 Flow Rate FiO2 08/07/24 05:20 102 18 96 Room Air* 0 21 08/07/24 05:20 98.0 118/68 (85) 98.0 Exam Limited as patient was in lobby Examination General Appearance: Alert, Oriented X3, Cooperative, drowsy HEENT: EOMI Respiratory: Clear to auscultation, Normal air movement Cardiovascular: Regular rate, Normal S1, Normal S2 Abdominal: Normal bowel sounds Extremities: No cyanosis, No edema, Normal pulses, No tenderness/swelling Skin: No rashes, No breakdown Neuro: Drowsy Labs/Xrays Labs Test 08/07/24 04:29 08/07/24 02:20 Range/Units Urine Color Colorless Yellow Urine Clarity Clear Clear Urine pH 6.5 5.0-9.0 Urine Specific [place] 1.023 1.001-1.035 Urine Protein Negative Negative Urine Ketones Negative Negative Urine Blood Negative Negative /uL Urine Nitrite Negative Negative Urine Bilirubin Negative Negative Urine Urobilinogen Normal Negative mg/dL Urine Leukocyte Esterase Trace Negative /uL Urine RBC <1 0 - 4 /hpf Urine Microscopic WBC 1 0-5 /HPF Urine Squamous Epithelial Cells Few <5 /hpf Urine Bacteria None seen None Seen /hpf Urine Glucose 2+ H Normal mg/dL White Blood Count 5.8 4.4-10.8 10^3/uL Red Blood Count 4.77 4.0-5.20 10^6/uL Hemoglobin 14.3 12.2-16.2 g/dL Hematocrit 42.3 36.0-46.0 % Mean Corpuscular Volume 88.6 80.0-100.0 fL Mean Corpuscular Hemoglobin 30.0 28.0-32.0 pg Mean Corpuscular Hemoglobin Concent 33.9 32.0-36.0 g/dL Red Cell Distribution Width 12.6 11.8-14.3 % Platelet Count 179 140-450 10^3/uL Mean Platelet Volume 8.7 6.9-10.8 fL Neutrophils (%) (Auto) 52.0 37.0-80.0 % Lymphocytes (%) (Auto) 43.4 10.0-50.0 % Monocytes (%) (Auto) 3.8 0.0-12.0 % Eosinophils (%) (Auto) 0.4 0.0-7.0 % Basophils (%) (Auto) 0.4 0.0-2.0 % Neutrophils # (Auto) 3.0 1.6-8.6 10 ^3/uL Lymphocytes # (Auto) 2.5 0.4-5.4 10 ^3/uL Monocytes # (Auto) 0.2 0-1.3 10 ^3/uL Eosinophils # (Auto) 0 0-0.8 10 ^3/uL Basophils # (Auto) 0 0-0.2 10 ^3/uL Nucleated Red Blood Cells 0.1 % Sodium Level 142 136-145 mmol/L Potassium Level 3.2 L 3.5-5.1 mmol/L Chloride Level 109 H 98-107 mmol/L Carbon Dioxide Level 17 L 20-31 mmol/L Anion Gap 16 H 5-15 Blood Urea Nitrogen 13 9-23 mg/dL Creatinine 0.71 0.550-1.02 mg/dL Glomerular Filtration Rate Calc 102 >90 mL/min BUN/Creatinine Ratio 18.3 10.0-20.0 Serum Glucose 243 H 74-106 mg/dL Calcium Level 9.5 8.7-10.4 mg/dL Plasma/Serum Blood Alcohol 65.8 H <10 mg/dL Assessment/Plan Assessment/Plan A and p #intractable abdominal pain with nausea and vomiting CT shows gastroenteritis. IV ceftriaxone plus Flagyl IV fluids #7.9 cm right adnexal cystic lesion -pelvic USG #Anion gap metabolic acidosis with non-anion gap metabolic acidosis -workup ordered likely Alcohol induced and GI losses -lactic acid, serum osm, beta-hydroxybutyric acidosis -no osmolar gap -ABG #hypokalemia due to GI losses -IV KCL -mg ordered #Alcohol use disorder #Acute alcohol intoxication -Thiamine IV once f/b Banana bag -UDS CIWA score 2-3, monitor for withdrawal #DM2 -sliding scale insulin #hypertension -will resume home meds #Hyperlipidemia -will resume home meds #Schizophrenia -will resume home meds #Bipolar disorder -will resume home meds Case discussion with dr jurado Plan discussed with: Patient, Other Date of Service: Aug 07, 2024 Billing Provider: DACIA JURADO MD Common Visit Codes: 75669-CYWPBDS INP/OBS CARE (HIGH) ANNEMARIE PATRICK RESIDENT Aug 07, 2024 06:16 DACIA JURADO MD Aug 07, 2024 21:51
[2024-08-07 06:38] LABS: Base Excess -6.8 mmol/L (-2.0-3.0)
[2024-08-07] MEDS: PANTOPRAZOLE 40 MG/10 ML VIAL INJ IV ONE (06:56)
[2024-08-07] MEDS: THIAMINE 100mg/ml INJ (200mg/2ml VIAL) IV ONE (06:57)
[2024-08-07] MEDS: cefTRIAXone 1GM/50ML D5W 50 ML IV ONE (06:58)
[2024-08-07] MEDS: SODIUM CHLORIDE 0.9% 500 ML IV ONE (06:59)
--- NOTE | 2024-08-07 07:33 | DVH ---
INDICATION: adnexal cyst TECHNIQUE: Multiple real-time grayscale transabdominal sonographic images along with color and duplex Doppler of the uterus and ovaries were obtained. COMPARISON: None FINDINGS: The uterus measures 7.4 x 4.6 x 2.4 cm. The endometrial stripe measures 0.3 cm. Right ovary measures 2.1 x 1.1 x 0.2 cm with normal Doppler color flow. Right adnexal cyst measures 8.1 cm. Left ovary measures 2.1 x 1.7 x 1.0 cm with normal Doppler color flow IMPRESSION: Right adnexal cyst measures 8.1 cm. Nonemergent Final Assembly Inspector consultation advised.
[2024-08-07 07:36] LABS: COVID19 ANTIGEN SOFIA FIA NEGATIVE (NEGATIVE)
[2024-08-07] MEDS: POTASSIUM CHL 20MEQ/100ML 100 ML IV SCH (07:40)
[2024-08-07] MEDS: ACCU-CHEK COMFORT CURVE STRIP VI SCH (08:09)
[2024-08-07] MEDS: InsuLIN REG 1unit/0.01ml Soln (100units/ml) SC SCH (08:12)
[2024-08-07 08:29] LABS: Total Protein 7.4 g/dL (5.7-8.2)
[2024-08-07 08:30] LABS: Alanine Aminotransferase 17 U/L (7-40); Aspartate Aminotransferase 16 U/L (13-40)
[2024-08-07 08:33] LABS: Albumin 4.8 g/dL (3.2-4.8); Alkaline Phosphatase 145 U/L (46-116); Bilirubin, Total 0.2 mg/dL (0.2-1.0)
[2024-08-07 08:41] LABS: Amphetamine Screen, Urine Neg (NEGATIVE); Barbiturate Scree,Urine Neg (NEGATIVE); Benzodiazephine Screen, Urine Neg (NEGATIVE); Cannabinoid Screen, Urine Neg (NEGATIVE); Cocaine Screen, Urine Pos (NEGATIVE); Opiate Scree,Urine Neg (NEGATIVE); Phencyclidine Screen, Urine Neg (NEGATIVE)
[2024-08-07] MEDS ORDERED: QUET100T47 PO (13:44)
--- NOTE | 2024-08-07 13:48 | DVHPN2 ---
Subjective Patient states that her abdominal pain has resolved. She is stating that she is now hungry. Reviewed: Care Plan, H&P, Labs, Medications Changes from previous H/P or p: No Changes General: Per HPI Objective Vitals Vital Signs Date Time Temp Pulse Resp B/P (MAP) Pulse Ox O2 Delivery O2 Flow Rate FiO2 08/07/24 09:52 Room Air* 0 21 08/07/24 09:00 97.6 85 17 143/89 (107) 99 97.6 Intake/Output Intake and Output 08/07/24 07:00 Intake Total 1000 ml Balance 1000 ml Intake IV Total 1000 ml General Appearance: Alert, Oriented X3, Cooperative, No acute distress HEENT: Atraumatic, PERRLA Cardiovascular: Normal S1, Normal S2 Musculoskeletal: Normal sensory function, Normal motor function Skin: Dry, Intact Psych/Mental Status: Mental status NL, Mood NL Medications Current Medications Medications Dose Ordered Sig/Alisa Route Start Time Stop Time Status Last Admin Dose Admin Folic Acid 1 mg/ Magnesium Sulfate 8 meq/ Multivitamins 10 ml/Thiamine HCl 100 mg/Sodium Chloride 1,013.2 ml @ 126.247 mls/hr DAILY@1800 INJ 08/07/24 18:00 Diagnostic Test (Pha) 1 strip IQ4HR 08/07/24 08:00 08/07/24 12:15 1 STRIP Insulin Human Regular IQ4HR SC 08/07/24 08:00 08/07/24 08:12 4 UNITS Dextrose 50 ml UD PRN IV 08/07/24 06:00 Ondansetron HCl 4 mg Q4HPRN PRN IV 08/07/24 06:15 Laboratory Results Laboratory Tests 08/07/24 02:20 Chemistry Test 08/07/24 02:20 Albumin 4.8 g/dL (3.2-4.8) Calcium Level 9.5 mg/dL (8.7-10.4) Magnesium Level 2.1 mg/dL (1.6-2.6) Total Protein 7.4 g/dL (5.7-8.2) LFT Test 08/07/24 02:20 Alanine Aminotransferase (ALT) 17 U/L (7-40) Alkaline Phosphatase 145 U/L (46-116) H Aspartate Amino Transferase (AST) 16 U/L (13-40) Total Bilirubin 0.2 mg/dL (0.2-1.0) HgA1c, TSH Test 08/07/24 02:20 Hemoglobin A1c 6.8 % A1C (<5.7) H Urinalysis Test 08/07/24 04:29 Urine Color Colorless (Yellow) Urine Clarity Clear (Clear) Urine pH 6.5 (5.0-9.0) Urine Specific [place] 1.023 (1.001-1.035) Urine Protein Negative (Negative) Urine Ketones Negative (Negative) Urine Blood Negative /uL (Negative) Urine Nitrite Negative (Negative) Urine Bilirubin Negative (Negative) Urine Urobilinogen Normal mg/dL (Negative) Urine Leukocyte Esterase Trace /uL (Negative) Urine RBC <1 /hpf (0 - 4) Urine Microscopic WBC 1 /HPF (0-5) Urine Squamous Epithelial Cells Few /hpf (<5) Urine Bacteria None seen /hpf (None Seen) Urine Glucose 2+ mg/dL (Normal) H Urine Test Negative (Negative) Blood Gas Results Test 08/07/24 06:31 Arterial Blood pH 7.339 (7.350-7.450) FiO2 % 21.0 Labs and/or images reviewed: Labs reviewed by me, Image(s) reviewed by me Assessment/Plan Assessment/Plan Impression: -probable acute alcohol intoxication -hypokalemia -schizophrenia -abdominal pain, questionable gastroenteritis -diabetes mellitus Plan: -continue IV hydration with banana bag -start p.o. intake -regular insulin sliding scale -restart Seroquel -Lifestyle modification education: 10 minutes discussed with the patient on the need to stop drinking alcohol given her comorbidities and medications -repeat labs in a.m. Total time spent with patient discussing and formulating plan of care: 35 minutes. This medical document was created using an electronic medical record system with [employer] dictation system. Although this document has been carefully reviewed, there may still be some phonetic and typographical errors. These areas are purely typographical due to imperfections of the software programs, and do not reflect any compromise in the patient's medical care. Plan discussed with: Patient, Other (RN) My Orders Orders - TAMMY SARMIENTO [employer] DESIGNER Procedure Category Date Status Time Regular Diet DIET 08/07/24 Transmitted Lunch Basic Metabolic Panel LAB 08/08/24 Verified 04:00 Magnesium LAB 08/08/24 Verified 04:00 Complete Blood Count LAB 08/08/24 Verified 04:00 Date of Service: Aug 07, 2024 Billing Provider: TAMMY SARMIENTO NP Common Visit Codes: [id number] INP/OBS CARE(HIGH) TAMMY SARMIENTO NP Aug 07, 2024 13:47
[2024-08-07] MEDS ORDERED: LAMO150T26 PO (14:20)
[2024-08-07] MEDS: FOLIC ACID 1 MG, MAGNESIUM SULF SDV 50% 8 MEQ, MULTIPLE VITAMIN 10 ML, THIAMINE INJ 100... INJ SCH (17:49)
[2024-08-07] MEDS: QUEtiapine FUMARATE 100 MG TAB PO SCH (21:12)
[2024-08-08 01:00] VITALS: BP 151/86; PULSE 81; RESP 17; TEMP 98.4; O2SAT 96
[2024-08-08 05:00] VITALS: BP 143/75; PULSE 89; RESP 18; TEMP 98.1; O2SAT 97
[2024-08-08 06:56] LABS: Anion Gap 10 (5-15); Carbon Dioxide 23 mmol/L (20-31); Potassium 3.6 mmol/L (3.5-5.1); Sodium 143 mmol/L (136-145)
[2024-08-08 07:02] LABS: BUN/Creatinine Ratio 13.8 (10.0-20.0); Blood Urea Nitrogen 11 mg/dL (9-23)
[2024-08-08 07:03] LABS: Chloride 110 mmol/L (98-107); Glucose 154 mg/dL (74-106)
[2024-08-08 07:14] LABS: Basophils # (auto) 0 10 ^3/uL (0-0.2); Basophils % (auto) 0.3 % (0.0-2.0); Eosinophils # (auto) 0 10 ^3/uL (0-0.8); Eosinophils % (auto) 0.5 % (0.0-7.0); Hematocrit 37.5 % (36.0-46.0); Hemoglobin 12.8 g/dL (12.2-16.2); Lymphocytes # (auto) 2.8 10 ^3/uL (0.4-5.4); Lymphocytes % (auto) 42.7 % (10.0-50.0); Mean Corpuscular Hemoglobin 30.1 pg (28.0-32.0); Mean Corpuscular Volume 88.3 fL (80.0-100.0); Monocytes # (auto) 0.3 10 ^3/uL (0-1.3); Neutrophils # (auto) 3.4 10 ^3/uL (1.6-8.6); Neutrophils % (auto) 52.5 % (37.0-80.0); Nucleated Red Blood Cells % 0.1 %; Platelet Count (auto) 155 10^3/uL (140-450); Red Blood Cells 4.25 10^6/uL (4.0-5.20); Red Cell Distribution Width 12.5 % (11.8-14.3); White Blood Cell 6.5 10^3/uL (4.4-10.8)
[2024-08-08 08:00] VITALS: RESP 14
[2024-08-08 09:00] VITALS: BP 128/80; PULSE 84; RESP 17; TEMP 98; O2SAT 97
[2024-08-08 11:28] VITALS: TEMP 36.7
[2024-08-08] MEDS ORDERED: METF-370 PO (13:16)
--- NOTE | 2024-08-08 13:19 | DVHDS2 ---
Discharge Summary Date of Admission Aug 07, 2024 at 05:58 Date of Discharge: Aug 08, 2024 Admitting Diagnosis Abdominal pain Labs/Diagnostic Data: Laboratory Results Test 08/08/24 11:22 08/08/24 05:50 08/07/24 06:58 08/07/24 06:41 POC Glucose 104 mg/dl (70-106) White Blood Count 6.5 10^3/uL (4.4-10.8) Red Blood Count 4.25 10^6/uL (4.0-5.20) Hemoglobin 12.8 g/dL (12.2-16.2) Hematocrit 37.5 % (36.0-46.0) Mean Corpuscular Volume 88.3 fL (80.0-100.0) Mean Corpuscular Hemoglobin 30.1 pg (28.0-32.0) Mean Corpuscular Hemoglobin Concent 34.0 g/dL (32.0-36.0) Red Cell Distribution Width 12.5 % (11.8-14.3) Platelet Count 155 10^3/uL (140-450) Mean Platelet Volume 9.3 fL (6.9-10.8) Neutrophils (%) (Auto) 52.5 % (37.0-80.0) Lymphocytes (%) (Auto) 42.7 % (10.0-50.0) Monocytes (%) (Auto) 4.0 % (0.0-12.0) Eosinophils (%) (Auto) 0.5 % (0.0-7.0) Basophils (%) (Auto) 0.3 % (0.0-2.0) Neutrophils # (Auto) 3.4 10 ^3/uL (1.6-8.6) Lymphocytes # (Auto) 2.8 10 ^3/uL (0.4-5.4) Monocytes # (Auto) 0.3 10 ^3/uL (0-1.3) Eosinophils # (Auto) 0 10 ^3/uL (0-0.8) Basophils # (Auto) 0 10 ^3/uL (0-0.2) Nucleated Red Blood Cells 0.1 % Sodium Level 143 mmol/L (136-145) Potassium Level 3.6 mmol/L (3.5-5.1) Chloride Level 110 mmol/L (98-107) Carbon Dioxide Level 23 mmol/L (20-31) Anion Gap 10 (5-15) Blood Urea Nitrogen 11 mg/dL (9-23) Creatinine 0.80 mg/dL (0.550-1.02) Glomerular Filtration Rate Calc 88 mL/min (>90) BUN/Creatinine Ratio 13.8 (10.0-20.0) Serum Glucose 154 mg/dL (74-106) Calcium Level 9.0 mg/dL (8.7-10.4) Magnesium Level 2.0 mg/dL (1.6-2.6) Lactic Acid Level 1.6 mmol/L (0.4-2.0) Beta-Hydroxybutyric Acid 0.057 mmol/L (< 0.4) SARS-CoV-2 Antigen (Rapid) Negative (NEGATIVE) Test 08/07/24 06:31 08/07/24 04:29 08/07/24 02:20 Blood Gas Specimen Type Arterial Blood Gas Sample Site Right brachial Blood Gas Patient Temperature 37.0 Arterial Blood Date Drawn [id number] Arterial Blood pH 7.339 (7.350-7.450) Arterial Blood Partial Pressure CO2 34.4 mmHg (32.0-45.0) Arterial Blood Partial Pressure O2 90.0 mmHg (83.0-108.0) Arterial Blood HCO3 18.1 mmol/L (21.0-28.0) Arterial Blood Oxygen Saturation 96.3 % (94.0-98.0) Arterial Blood Base Excess -6.8 mmol/L (-2.0-3.0) Arterial Blood Oxyhemoglobin 94.2 % (94.0-98.0) Arterial Blood Carboxyhemoglobin 1.5 % (0.5-1.5) Arterial Blood Methemoglobin 0.7 % (0.0-1.5) [place] Test N/a Blood Gas Total Hemoglobin 13.10 g/dL (12.0-16.0) Blood Gas Modality Room air FiO2 % 21.0 Urine Color Colorless (Yellow) Urine Clarity Clear (Clear) Urine pH 6.5 (5.0-9.0) Urine Specific [place] 1.023 (1.001-1.035) Urine Protein Negative (Negative) Urine Ketones Negative (Negative) Urine Blood Negative /uL (Negative) Urine Nitrite Negative (Negative) Urine Bilirubin Negative (Negative) Urine Urobilinogen Normal mg/dL (Negative) Urine Leukocyte Esterase Trace /uL (Negative) Urine RBC <1 /hpf (0 - 4) Urine Microscopic WBC 1 /HPF (0-5) Urine Squamous Epithelial Cells Few /hpf (<5) Urine Bacteria None seen /hpf (None Seen) Urine Glucose 2+ mg/dL (Normal) Urine Test Negative (Negative) Urine Opiates Screen Neg (NEGATIVE) Urine Fentanyl Screen Neg (NEGATIVE) Urine Barbiturates Screen Neg (NEGATIVE) Urine Phencyclidine Screen Neg (NEGATIVE) Urine Amphetamines Screen Neg (NEGATIVE) Urine Benzodiazepines Screen Neg (NEGATIVE) Urine Cocaine Screen Pos (NEGATIVE) Urine Cannabinoids Screen Neg (NEGATIVE) Hemoglobin A1c 6.8 % A1C (<5.7) Serum Osmolality 320 mOsm/kg (278-298) Total Bilirubin 0.2 mg/dL (0.2-1.0) Aspartate Amino Transferase (AST) 16 U/L (13-40) Alanine Aminotransferase (ALT) 17 U/L (7-40) Alkaline Phosphatase 145 U/L (46-116) Troponin I High Sensitivity 8 ng/L (</=34) Total Protein 7.4 g/dL (5.7-8.2) Albumin 4.8 g/dL (3.2-4.8) Beta HCG, Quantitative < 1.5 mIU/mL (1.5-4.2) Plasma/Serum Blood Alcohol 65.8 mg/dL (<10) Other Laboratory Tests 08/08/24 05:50 Brief Hx & Hospital Course: History of Present Illness 54-year-old female with past medical history of diabetes mellitus type 2, hyperlipidemia, hypertension, substance use, schizophrenia and bipolar disorder presented with complaints of right lower quadrant pain. Patient has been drinking alcohol for long time and last drink was yesterday. Patient also mentioned having nausea and vomiting. Patient is a poor historian. Patient denied any active chest pain, shortness of breath, diarrhea, constipation. She also denies any cough, headache, dizziness. Course of hospitalization: Patient was treated with IV hydration, bowel rest. Patient was states that her abdominal pain has resolved. She was started on clear liquid diet, advanced to consistent carbohydrate diet. Patient's hemoglobin A1c was found to be 6.8. Blood sugars have being told while in the hospital. Patient will be discharged home and follow up with her PCP, Sunitha Taylor NP in one week. She will also continue all home medications. Patient was states that she does not have any diabetic medications at this time, which was verified via medication reconciliation. Patient was be placed on metformin 250 mg p.o. b.i.d.. Physical examination General: Alert and Oriented x3. No acute distress. Well-nourished. Eyes: EOMI. Anicteric. HENT: Moist mucous membranes. Lungs: Clear to auscultation bilaterally. No accessory muscle use. Cardiovascular: Regular rate and rhythm. No murmur. No JVD. Abdomen: Soft, non-tender and non-distended. No palpable masses. Extremities: No edema. Non-tender. Skin: No rashes or lesions. Warm. Neurologic: No focal neurological deficits. CN II-XII grossly intact, but not individually tested. Psychiatric: Cooperative. Appropriate mood and affect. Total time spent with patient discussing and formulating plan of care: 35 minutes. This medical document was created using an electronic medical record system with [employer] dictation system. Although this document has been carefully reviewed, there may still be some phonetic and typographical errors. These areas are purely typographical due to imperfections of the software programs, and do not reflect any compromise in the patient's medical care. Condition at Discharge: Fair Final Diagnosis/Problems List ABDOMINAL PAIN SECONDARY TO ACUTE ALCOHOL INTOXICATION Secondary diagnosis: -probable acute alcohol intoxication -hypokalemia -schizophrenia -abdominal pain, questionable gastroenteritis -diabetes mellitus Discharge Disposition: Home Discharge Instruct/Medications Diet: Regular Activity: No Restrictions, As Tolerated Follow Up/Referral: Follow up with PCP in 1-2 weeks Medications: Continue all home medications 36 Discharge Statement: "Patient was advised to return to the ER or call 911 if any headaches, dizziness, shortness of breath, chest pain, abdominal pain, bleeding, fevers, or worsening of medical condition. Patient was counseled about treatment plan, medications, possible side effects, patientverbalized understanding. All questions were answered to the best of my ability. This discharge took greater then 30 minutes in planning, reviewing documentation, counseling the patient, and discussing with other team members." ASSESSMENT ASSESSMENT Assessment ABDOMINAL PAIN SECONDARY TO ACUTE ALCOHOL INTOXICATION Date of Service: Aug 08, 2024 Billing Provider: TAMMY SARMIENTO NP Common Visit Codes: [id number] DISCH DAY >30min TAMMY SARMIENTO NP Aug 08, 2024 13:19
== END 2024-08-08 14:35 | disposition home or self-care (01) | DRG 249 ==
LOC: EDBD 01:39 → EDUNIT# 01:39 → ER 01:41 → OVERFLOW 05:58 → WEST WING 08:52
PROVIDERS: ADMIT Nurse Practitioner Acute Care; ATTEND Nurse Practitioner Acute Care
DX: K52.9 Noninfective gastroenteritis and colitis, unspecified (principal); E11.9 Type 2 diabetes mellitus without complications; I10 Essential (primary) hypertension; F20.9 Schizophrenia, unspecified; F10.120 Alcohol abuse with intoxication, uncomplicated; F31.9 Bipolar disorder, unspecified; E78.5 Hyperlipidemia, unspecified; F41.9 Anxiety disorder, unspecified; E87.6 Hypokalemia; F17.210 Nicotine dependence, cigarettes, uncomplicated; Z20.822 Contact with and (suspected) exposure to COVID-19; Z87.442 Personal history of urinary calculi; Z79.84 Long term (current) use of oral hypoglycemic drugs; Z90.49 Acquired absence of other specified parts of digestive tract; Z88.8 Allergy status to other drugs, medicaments and biological substances; Y90.3 Blood alcohol level of 60-79 mg/100 ml
CPT/HCPCS: 36415; 36600; 74177; 76856; 80048; 80053; 80307; 80320; 81001; 81025; 82010; 82805; 82962; 83036; 83605; 83735; 83930; 84484; 84702; 85025; 87081; 87426; 96365; 96372; 96375; 99291; G0378; J1815; J2405; J2470; J3480; J3490